=== PATIENT | female | born 1965 | race Caucasian/White ===

== ENCOUNTER → 2018-12-21 | Outpatient (REF) ==
--- NOTE | 2018-12-21 14:44 | REP ---
REASON: Disability determination. Comparison examination: None. FINDINGS: The compartments are symmetric and relatively well maintained. There is no acute fracture or destructive osseous lesion. Electronically Signed by Brayan Reynoso DO 12/21/2018 03:56 P
--- NOTE | 2018-12-21 14:48 | REP ---
AP PELVIS AND BILATERAL AP AND FROG LATERAL VIEWS OF THE HIPS: REASON: Disability determination. PRIORS: None. AP PELVIS: A single AP view of the pelvis was performed. The hip joint spaces are symmetric and relatively well maintained. There is no acute fracture or destructive osseous lesion. BILATERAL HIPS: FINDINGS: The hip joint spaces are symmetric and relatively well maintained. There is no acute fracture or destructive osseous lesion. Electronically Signed by Brayan Reynoso DO 12/21/2018 03:57 P
== END ==
LOC: M SMT 13:04
PROVIDERS: ATTEND Internal Medicine
DX: Z00.00 Encounter for general adult medical examination without abnormal findings (principal)